=== PATIENT | female | born 1990 | race Caucasian/White ===

== ENCOUNTER 2020-11-04 17:35 | Outpatient (CLI) | payer OTHER ==
[~2020-11-04 17:35] MED LIST: AMOXICILLIN500 MG PO; CORTISPORIN OTI10 M1 EARBOTH; IBUPROFEN600 MG PO
== END 2020-11-05 09:53 | disposition home or self-care (01) ==
LOC: GENOP 17:35
DX: O21.2 Late vomiting of pregnancy (principal); O99.213 Obesity complicating pregnancy, third trimester; E66.9 Obesity, unspecified; O99.333 Smoking (tobacco) complicating pregnancy, third trimester; F17.210 Nicotine dependence, cigarettes, uncomplicated; O99.353 Diseases of the nervous system complicating pregnancy, third trimester; G43.909 Migraine, unspecified, not intractable, without status migrainosus; Z79.899 Other long term (current) drug therapy; Z3A.33 33 weeks gestation of pregnancy
CPT/HCPCS: 59025; 81001; 96360; 96361; 96367; 96374; C9113; J2405; J2550; J7120

== ENCOUNTER 2020-11-17 18:23 | Outpatient (CLI) | payer OTHER | END 2020-11-18 00:23 | disposition home or self-care (01) | LOC: GENOP 18:23 | DX: O99.613 Diseases of the digestive system complicating pregnancy, third trimester (principal); K92.0 Hematemesis; O99.333 Smoking (tobacco) complicating pregnancy, third trimester; F17.210 Nicotine dependence, cigarettes, uncomplicated; O99.353 Diseases of the nervous system complicating pregnancy, third trimester; G43.909 Migraine, unspecified, not intractable, without status migrainosus; Z79.899 Other long term (current) drug therapy; Z3A.35 35 weeks gestation of pregnancy | CPT/HCPCS: 81001; 96365; J2550; J7120 ==

== ENCOUNTER → 2020-12-06 | Outpatient (CLI) | payer OTHER ==
[~2020-12-06] MED LIST changes: +DOCUSATE SODIU250 MG PO; +FAMOTIDINE40 MG PO; +FEROSUL325 MG PO; +HYDROCODONE-AC1 EACH PO; +ONDANSETRON HCL8 MG PO
[2020-12-06 14:43] LABS: HEMOGLOBIN 11.8 gm/dl (12.3-15.3); RED BLOOD COUNT 3.59 M/UL (4.00-5.10); WHITE BLOOD COUNT 9.8 K/UL (4.5-11.0)
== END ==
LOC: GENOP 12:47
PROVIDERS: Obstetrics & Gynecology
DX: Z01.812 Encounter for preprocedural laboratory examination (principal); O36.5990 Maternal care for other known or suspected poor fetal growth, unspecified trimester, not applicable or unspecified
CPT/HCPCS: 81001; 85025

== ENCOUNTER 2020-12-09 06:55 | Inpatient (IN) | payer OTHER ==
[~2020-12-09] VITALS: Ht 170.2 cm; Wt 134.7 kg
[~2020-12-09 06:55] MED LIST changes: -DOCUSATE SODIU250 MG PO; -FAMOTIDINE40 MG PO; -FEROSUL325 MG PO; -HYDROCODONE-AC1 EACH PO; -ONDANSETRON HCL8 MG PO
[2020-12-09] MEDS ORDERED: FAMOTIDINE40 MG PO (07:57)
[2020-12-09] MEDS ORDERED: ONDANSETRON HCL8 MG PO (07:58)
[2020-12-09] MEDS ORDERED: HYDROCODONE-AC1 EACH PO (10:16)
[2020-12-09] MEDS ORDERED: FEROSUL325 MG PO (10:16)
[2020-12-09] MEDS ORDERED: IBUPROFEN600 MG PO (10:16)
[2020-12-09] MEDS ORDERED: DOCUSATE SODIU250 MG PO (10:16)
[2020-12-10 06:14] LABS: HEMOGLOBIN 9.9 gm/dl (12.3-15.3)
== END 2020-12-11 13:25 | disposition home or self-care (01) | DRG 787 ==
LOC: OB 06:55
PROVIDERS: Obstetrics & Gynecology; ADMIT Obstetrics & Gynecology
PROC: 10D00Z1 Extraction of Products of Conception, Low, Open Approach (ICD-10-PCS; principal; 2020-12-09 09:15)
DX: O36.5930 Maternal care for other known or suspected poor fetal growth, third trimester, not applicable or unspecified (principal); D62 Acute posthemorrhagic anemia; O99.214 Obesity complicating childbirth; O34.211 Maternal care for low transverse scar from previous cesarean delivery; E66.01 Morbid (severe) obesity due to excess calories; Z3A.37 37 weeks gestation of pregnancy; Z37.0 Single live birth; Z91.040 Latex allergy status
CPT/HCPCS: 36415; 81001; 82800; 85014; 85018; 85025; 85461; 86850; 86900; 86901; 90715; C9113; J0690; J2274; J2590; J2704; J2790; J7120; U0003